=== PATIENT | female | born 1990 | race Caucasian/White ===

== ENCOUNTER 2018-03-28 16:58 | Emergency (ER) | payer MEDICAID ==
[~2018-03-28] VITALS: Ht 157.5 cm; Wt 54.4 kg
[2018-03-28 17:10] VITALS: BP_SYST 116
[2018-03-28] MEDS ORDERED: NACL 0.9% 1,000 ML IV ONE (17:24)
[2018-03-28] MEDS ORDERED: KETOROLAC TROMETHAMINE 30 MG VIAL IVP ONE (17:30)
[2018-03-28] MEDS ORDERED: ONDANSETRON HCL 4 MG/2 ML VIAL IVP ONE (17:30)
[2018-03-28 17:56] LABS: BASOPHILS # (AUTO) 0.1 K/uL (0.0-0.2); BASOPHILS % (AUTO) 0.6 % (0.0-2.0); CALCIUM 9.8 mg/dL (8.4-11.0); CREATININE 0.62 mg/dL (0.55-1.30); EOSINOPHILS # (AUTO) 0.1 K/uL (0.0-0.4); EOSINOPHILS % (AUTO) 0.6 % (0.0-4.0); HEMATOCRIT 40.5 % (36-48); HEMOGLOBIN 13.8 g/dL (12.0-16.0); LYMPHOCYTES # (AUTO) 2.2 K/uL (1.0-5.5); LYMPHOCYTES % (AUTO) 18.7 % (20.5-51.5); MEAN CORPUSCULAR HEMOGLOBIN 30 pg (27-31); MEAN CORPUSCULAR HGB CONC 34 % (32-36); MEAN CORPUSCULAR VOLUME 89 fL (79.0-98.0); MONOCYTES # (AUTO) 0.6 K/uL (0.0-1.0); MONOCYTES % (AUTO) 5.1 % (1.7-9.3); NEUTROPHILS # (AUTO) 8.6 K/uL (1.8-7.7); PLATELET COUNT (AUTO) 350 K/uL (130-430); POTASSIUM 4.1 mmol/L (3.5-5.1); RED BLOOD CELL COUNT(AUTO) 4.56 MIL/uL (4.2-6.2); RED CELL DISTRIBUTION WIDTH 12.7 % (9.0-15.0); WHITE BLOOD COUNT (AUTO) 11.6 K/uL (4.8-10.8)
[2018-03-28 18:01] LABS: ALBUMIN 4.2 g/dL (3.4-4.8); TOTAL BILIRUBIN 0.5 mg/dL (0.0-1.0)
[2018-03-28 18:06] LABS: BILIRUBIN,URINE NEGATIVE (NEGATIVE); BLOOD, URINE NEGATIVE (NEGATIVE); CLARITY/URINE CLEAR (CLEAR); COLOR,URINE YELLOW (YELLOW); GLUCOSE,URINE NEGATIVE (NEGATIVE); KETONES,URINE 2+ (NEGATIVE); LEUKOCYTE ESTERASE ,URINE NEGATIVE (NEGATIVE); NITRITE, URINE NEGATIVE (NEGATIVE); PROTEIN URINE TRACE (NEGATIVE)
[2018-03-28 18:18] LABS: BACTERIA,URINE FEW /HPF (None Seen); MUCUS,URINE 1+ /LPF (None Seen); RBC,URINE NONE SEEN /HPF (0-3); WBC,URINE 0-3 /HPF (0-3)
[2018-03-28 19:25] VITALS: BP_SYST 116
== END 2018-03-28 19:25 | disposition home or self-care (01) ==
LOC: SED 16:58
DX: O20.0 Threatened abortion (principal); Z3A.01 Less than 8 weeks gestation of pregnancy
CPT/HCPCS: 36415; 80053; 81000; 81025; 83690; 85025; 96361; 96374; 96375; 99284; J1885; J2405; J7030

== ENCOUNTER 2018-04-11 22:06 | Emergency (ER) | payer MEDICAID ==
[~2018-04-11] VITALS: Ht 157.5 cm; Wt 54.4 kg
[2018-04-11 22:11] VITALS: BP_SYST 108
[2018-04-11] MEDS ORDERED: NACL 0.9% 1,000 ML IV ONE (22:21)
[2018-04-11] MEDS ORDERED: KETOROLAC TROMETHAMINE 30 MG VIAL IVP ONE (22:30)
[2018-04-11 22:31] LABS: BILIRUBIN,URINE NEGATIVE (NEGATIVE); BLOOD, URINE 3+ (NEGATIVE); CLARITY/URINE HAZY (CLEAR); COLOR,URINE YELLOW (YELLOW); GLUCOSE,URINE NEGATIVE (NEGATIVE); KETONES,URINE NEGATIVE (NEGATIVE); LEUKOCYTE ESTERASE ,URINE 1+ (NEGATIVE); NITRITE, URINE NEGATIVE (NEGATIVE); PROTEIN URINE TRACE (NEGATIVE)
[2018-04-11 22:38] LABS: BACTERIA,URINE FEW /HPF (None Seen); MUCUS,URINE None Seen /LPF (None Seen); RBC,URINE 20-50 /HPF (0-3)
[2018-04-11 22:50] LABS: BASOPHILS # (AUTO) 0.2 K/uL (0.0-0.2); BASOPHILS % (AUTO) 1.2 % (0.0-2.0); EOSINOPHILS # (AUTO) 0.2 K/uL (0.0-0.4); EOSINOPHILS % (AUTO) 1.3 % (0.0-4.0); HEMATOCRIT 33.3 % (36-48); HEMOGLOBIN 11.7 g/dL (12.0-16.0); LYMPHOCYTES # (AUTO) 2.3 K/uL (1.0-5.5); LYMPHOCYTES % (AUTO) 16.4 % (20.5-51.5); MEAN CORPUSCULAR HEMOGLOBIN 32 pg (27-31); MEAN CORPUSCULAR HGB CONC 35 % (32-36); MEAN CORPUSCULAR VOLUME 91 fL (79.0-98.0); MONOCYTES # (AUTO) 1.1 K/uL (0.0-1.0); MONOCYTES % (AUTO) 7.7 % (1.7-9.3); NEUTROPHILS # (AUTO) 10.3 K/uL (1.8-7.7); NEUTROPHILS % (AUTO) 73.4 % (40.0-70.0); PLATELET COUNT (AUTO) 242 K/uL (130-430); RED BLOOD CELL COUNT(AUTO) 3.68 MIL/uL (4.2-6.2); RED CELL DISTRIBUTION WIDTH 13.3 % (9.0-15.0); WHITE BLOOD COUNT (AUTO) 14.1 K/uL (4.8-10.8)
[2018-04-11 22:56] LABS: CALCIUM 8.9 mg/dL (8.4-11.0); CREATININE 0.56 mg/dL (0.55-1.30); POTASSIUM 3.8 mmol/L (3.5-5.1)
[2018-04-11 23:02] LABS: ALBUMIN 3.4 g/dL (3.4-4.8); TOTAL BILIRUBIN 0.2 mg/dL (0.0-1.0)
[2018-04-12 00:30] VITALS: BP_SYST 110
[2018-04-12] MEDS ORDERED: IPRATROPIUM/ALBUTEROL SULFATE 3 ML AMPUL.NEB ONE (10:17)
== END 2018-04-12 00:39 | disposition home or self-care (01) ==
LOC: SED 22:06
DX: N39.0 Urinary tract infection, site not specified (principal)
CPT/HCPCS: 36415; 74176; 80053; 81000; 83690; 85025; 87086; 96374; 99285; J1885; J7030; J7620

== ENCOUNTER 2018-11-11 09:46 | Emergency (ER) | payer MEDICAID ==
[~2018-11-11] VITALS: Ht 157.5 cm; Wt 59.0 kg
[2018-11-11 09:56] VITALS: BP_SYST 126
[2018-11-11] MEDS ORDERED: NACL 0.9% 1,000 ML IV ONE ×2 (10:03→10:15)
--- NOTE | 2018-11-11 10:03 | NUR ---
Patient to ER bed 03 to gown for evaluation. Side rails up.
--- NOTE | 2018-11-11 10:11 | NUR ---
ER Dr. Draper at bedside examining patient.
[2018-11-11] MEDS ORDERED: ONDANSETRON HCL 4 MG/2 ML VIAL IVP ONE (10:15)
--- NOTE | 2018-11-11 10:15 | NUR ---
Pt AAOx4, c/o n/v since Saturday and is "not able to keep anything down" and has not eaten. Pt states she is 6 weeks . Pt states no fevers or chills but has had a cough since Saturday as well. No other complaints or injuries per pt or noted.
[2018-11-11] MEDS ORDERED: PANTOPRAZOLE SODIUM 40 MG/VIAL (PROTONIX) IVP ONE (10:30)
[2018-11-11 10:33] LABS: BILIRUBIN,URINE NEGATIVE (NEGATIVE); BLOOD, URINE NEGATIVE (NEGATIVE); CLARITY/URINE CLEAR (CLEAR); COLOR,URINE YELLOW (YELLOW); GLUCOSE,URINE NEGATIVE (NEGATIVE); KETONES,URINE 3+ (NEGATIVE); LEUKOCYTE ESTERASE ,URINE NEGATIVE (NEGATIVE); NITRITE, URINE NEGATIVE (NEGATIVE); PH,URINE 6.5 (5.0-8.0); PROTEIN URINE 2+ (NEGATIVE); UROBILINOGEN,URINE 0.2 (0.2-1.0)
--- NOTE | 2018-11-11 10:50 | NUR ---
Pt off unit to ultrasound, ambulatory.
[2018-11-11 10:53] LABS: BACTERIA,URINE MODERATE /HPF (None Seen); MUCUS,URINE 4+ /LPF (None Seen); RBC,URINE 0-3 /HPF (0-3); WBC,URINE 0-3 /HPF (0-3); YEAST,URINE None Seen /HPF (None Seen)
[2018-11-11 10:58] LABS: WHITE BLOOD COUNT (AUTO) 15.9 K/uL (4.8-10.8)
[2018-11-11 10:59] LABS: EOSINOPHILS % (AUTO) 0.3 % (0.0-4.0); HEMATOCRIT 43.5 % (36-48); HEMOGLOBIN 14.6 g/dL (12.0-16.0); MEAN CORPUSCULAR HEMOGLOBIN 30 pg (27-31); MEAN CORPUSCULAR HGB CONC 34 % (32-36); MEAN CORPUSCULAR VOLUME 89 fL (79.0-98.0); MONOCYTES % (AUTO) 7.2 % (1.7-9.3); PLATELET COUNT (AUTO) 344 K/uL (130-430); RED BLOOD CELL COUNT(AUTO) 4.89 MIL/uL (4.2-6.2)
[2018-11-11 11:00] LABS: BASOPHILS # (AUTO) 0.1 K/uL (0.0-0.2); BASOPHILS % (AUTO) 0.5 % (0.0-2.0); EOSINOPHILS # (AUTO) 0.1 K/uL (0.0-0.4); LYMPHOCYTES # (AUTO) 2.4 K/uL (1.0-5.5); MONOCYTES # (AUTO) 1.1 K/uL (0.0-1.0); NEUTROPHILS # (AUTO) 12.3 K/uL (1.8-7.7)
[2018-11-11] MEDS ORDERED: POTASSIUM CHLORIDE 20 MEQ TAB.PRT.SR PO ONE (11:00)
[2018-11-11 11:06] LABS: CALCIUM 9.4 mg/dL (8.4-11.0); POTASSIUM 3.1 mmol/L (3.5-5.1)
--- NOTE | 2018-11-11 11:23 | NUR ---
Pt return to unit from ultrasound. Pt tolerated well.
[2018-11-11 11:30] LABS: ALBUMIN 4.3 g/dL (3.4-4.8); TOTAL BILIRUBIN 0.7 mg/dL (0.0-1.0)
--- NOTE | 2018-11-11 11:30 | NUR ---
Pt states relief from nausea and is able to tolerate ice chips and water.
[2018-11-11 12:11] LABS: CREATININE 0.56 mg/dL (0.55-1.30)
--- NOTE | 2018-11-11 12:30 | NUR ---
Patient given written and verbal discharge instructions and verbalizes understanding. ER MD discussed with patient the results and treatment provided. Patient in stable condition. ID arm band removed. IV catheter removed intact and dressing applied, no active bleeding. Rx of zofran, protonix, and macrobid given. Patient educated on pain management and to follow up with PMD. Pain Scale 0/10. Opportunity for questions provided and answered. Medication side effect fact sheet provided.
[2018-11-11 12:33] VITALS: BP_SYST 96
== END 2018-11-11 12:30 | disposition home or self-care (01) ==
LOC: SED 09:46
DX: O23.41 Unspecified infection of urinary tract in pregnancy, first trimester (principal); O99.611 Diseases of the digestive system complicating pregnancy, first trimester; K29.70 Gastritis, unspecified, without bleeding; Z3A.01 Less than 8 weeks gestation of pregnancy
CPT/HCPCS: 36415; 76700; 76801; 76817; 80053; 81000; 81025; 83690; 84702; 85025; 86901; 87086; 96361; 96374; 96375; 99284; C9113; J2405; J7030

== ENCOUNTER 2019-07-21 14:53 | Emergency (ER) | payer MEDICAID, OTHER ==
[~2019-07-21] VITALS: Ht 157.5 cm; Wt 54.4 kg
[2019-07-21 15:02] VITALS: BP_SYST 121
--- NOTE | 2019-07-21 15:06 | NUR ---
Ambulatory to bed 8
--- NOTE | 2019-07-21 15:10 | NUR ---
ER TOMASA Mike at bedside examining patient.
[2019-07-21] MEDS ORDERED: KETOROLAC TROMETHAMINE 30 MG VIAL IVP ONE (15:30)
[2019-07-21] MEDS ORDERED: NACL 0.9% 1,000 ML IV ONE (15:30)
[2019-07-21] MEDS ORDERED: ONDANSETRON HCL 4 MG/2 ML VIAL IVP ONE (15:30)
--- NOTE | 2019-07-21 15:45 | NUR ---
Pt a&ox4. Pt presented in ER with c/o body aches, nausea, vomiting and sore throat. Pt states signs and symptoms began Saturday07/19/19. Pt states pain is 8/10 with in throat and throughout body. Pt states vomiting occurred last night 07/20/2019. Pt states no vomiting has occurred today. Will continue to monitor. Will continue to monitor.
[2019-07-21 16:00] LABS: BILIRUBIN,URINE 1+ (NEGATIVE); BLOOD, URINE 2+ (NEGATIVE); CLARITY/URINE CLOUDY (CLEAR); COLOR,URINE YELLOW (YELLOW); GLUCOSE,URINE NEGATIVE (NEGATIVE); KETONES,URINE 2+ (NEGATIVE); LEUKOCYTE ESTERASE ,URINE TRACE (NEGATIVE); NITRITE, URINE NEGATIVE (NEGATIVE); PROTEIN URINE 1+ (NEGATIVE); UROBILINOGEN,URINE 0.2 (0.2-1.0)
[2019-07-21 16:32] LABS: BACTERIA,URINE MODERATE /HPF (None Seen); MUCUS,URINE 3+ /LPF (None Seen)
[2019-07-21 17:13] VITALS: BP_SYST 121
--- NOTE | 2019-07-21 17:13 | NUR ---
Patient given written and verbal discharge instructions and verbalizes understanding. ER DIRECTOR OF PUBLIC SAFETY Cee discussed with patient the results and treatment provided. Patient in stable condition. ID arm band removed. IV catheter removed intact and dressing applied, no active bleeding. Rx of zofran 4 mg, tylenol 500 mg, cipro 500 mg given. Patient educated on pain management and to follow up with PMD. Pain Scale 3/10. Opportunity for questions provided and answered. Medication side effect fact sheet provided.
== END 2019-07-21 17:13 | disposition home or self-care (01) ==
LOC: SED 14:53
DX: N12 Tubulo-interstitial nephritis, not specified as acute or chronic (principal); R11.2 Nausea with vomiting, unspecified; I10 Essential (primary) hypertension
CPT/HCPCS: 81000; 81025; 86710; 87086; 96361; 96374; 96375; 99283; J1885; J2405; J7030; 36415